=== PATIENT | male | born 1940 | race Caucasian/White ===

== ENCOUNTER → 2017-01-11 | Outpatient (CLI) | payer OTHER, MEDICARE ==
[~2017-01-11] MED LIST: ADVAIR HFA115 MCG/21 INH; ALLERGY10 M1 PO; ATORVASTATIN CA40 MG PO; ATORVASTATIN CA80 MG PO; FENOFIBRATE160 MG PO; FLOMAX PO; FLUOXETINE HCL40 MG PO; GLUCOPHAGE XR500 MG PO; IBUPROFEN 800800 MG PO; KEFLEX500 MG PO; LACTINEX CHEWA1 EACH PO; LEVAQUIN 500 M500 M2 PO; LISINOPRIL20 MG PO; METFORMIN HCL500 MG PO; NORCO 5-325 TA1 EACH PO; PERCOCET 5-3251 EACH PO; PERCOCET PO; POTASSIUM20 PO; PREDNISONE 10 M10 MG PO; PREDNISONE 20 M20 M1 PO; PROAIR HFA8.5 GM INH; PROZAC 20 MG20 M1 PO; SIMVASTATIN80 MG PO; TAMSULOSIN HCL0.4 M1 PO; TESSALON PERLE100 MG PO; VENTOLIN HFA INH8 GM INH; ZOFRAN ODT4 MG PO
== END ==
LOC: RAD 09:15
DX: J93.9 Pneumothorax, unspecified (principal)

== ENCOUNTER → 2017-03-17 | Outpatient (CLI) | payer OTHER, MEDICARE | LOC: RAD 08:50 | DX: J44.9 Chronic obstructive pulmonary disease, unspecified (principal) ==

== ENCOUNTER 2017-03-27 20:07 | Inpatient (IN) | payer OTHER, MEDICARE ==
[~2017-03-27] VITALS: Ht 177.8 cm; Wt 90.5 kg
--- NOTE | ~2017-03-27 | EKG ---
[address] [address] [place] [address] ELECTROCARDIOGRAM REPORT Name: TEODORA BRAVO Room #: 314-P ADM IN M.R.#: [id number] Admission: 03/27/17 Attend Phys: Fidel Myers DO Discharge: Date of : 40 Report #: [id number] THIS REPORT FOR: //name// [facility] ED Test Date: 2017-03-27 Test Time: 20:13:28 Pat Name: TEODORA BRAVO Department: Room: [facility] Gender: M Boarding House Manager: FREDDY : 1940 Requested By: Nydia Perry Order Number: [id number] MD: Harvey Hazel Measurements Intervals [place] Rate: 99 P: 69 RI: 132 QRS: -35 QRSD: 132 T: 50 QT: 334 QTc: 429 Interpretive Statements Sinus tachycardia Multiple premature complexes, vent & supraven Right bundle branch block Compared to ECG 11/07/2016 11:15:19 No significant change was found Electronically Signed On 03-29-2017 7:48:27 CDT by Harvey Hazel [email or web address] <ELECTRONICALLY SIGNED> By: Harvey Hazel MD, [facility] 03/29/17 0748 12 12 Harvey Hazel MD, [facility] /EPI
--- NOTE | ~2017-03-27 | HC ---
[facility] [place] [address] [place] [address] CONSULTATION Name: TEODORA BRAVO Room #: 314-P [facility] IN M.R.#: [id number] Admission: 03/27/17 Attend Phys: Fidel Myers DO Discharge: 03/29/17 Date of : 40 Report #: [id number] THIS REPORT FOR: //name// CC: Fidel Portillo HISTORY OF PRESENT ILLNESS: The patient is a 77-year-old white male with a prior history of small cell lung CA status post radiation chemotherapy approximately one year ago. Cancer was noted to be in remission. He has been living by himself at home. 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 The son is uncertain whether this is a second primary tumor or if it is metastatic. The son indicated that he had an MRI of the brain that showed the tumor in October, another one in January that showed the tumor was increasing or expanding in size and apparently has had another MRI that showed further expansion of the tumor, although no evidence of actual shift. He actually has a followup appointment with Dr. Byers in Neurosurgery at tomorrow. In the meantime, the patient has had problems with worsening falls. He had two falls yesterday with one initial fall and then another one when he tried to get up and was unable. He essentially laid on the floor for at least an hour and a half and was admitted, noted to have some rhabdomyolysis, dehydration. He has been rehydrated and is doing better, but still has decreased balance and functional mobility. We are seeing him in rehabilitation medicine consultation. PAST MEDICAL HISTORY: Is delineated above. He has a prior history of kidney stones, diabetes, kidney stones removal, COPD. MEDICATIONS: Please see the full medication listing. ALLERGIES: No known drug allergies. SOCIAL HISTORY: Lives alone in a house, one step, did not utilize gait aids. He would use a walker in the community. He is still driving. His son works, but is supportive. REVIEW OF SYSTEMS: Did not offer any current complaints of chest pain, shortness of breath or abdominal discomfort. No focal extremity pain complaints. No complaints of headache. No complaints of bowel or bladder changes were verbalized. PHYSICAL EXAMINATION: GENERAL: He is a 77-year-old white male in no obvious distress. He has frontal balding. VITAL SIGNS: His last recorded temperature is 96.7, pulse 94, respirations 22, blood pressure 104/62. NEUROLOGIC: Facies are symmetric. EXTREMITIES: He has functional range of motion of both upper and lower [address] [address] CONSULTATION Name: TEODORA BRAVO Room #: 314-P [facility] IN M.R.#: [id number] Admission: 03/27/17 Attend Phys: Fidel Myers DO Discharge: 03/29/17 Date of : 40 Report #: [id number] extremities. He may have some mild decreased strength of that right upper and right lower extremity, a grade 4 to 4-. DTRs were trace to 1. There is a hint of possible clonus of that right ankle. Left upper and left lower extremity were more of a grade 4+/5. DTRs were 1. Functionally, he is min assist with sit to stand. He is contact guard to ambulate 100 feet with a front-wheeled walker. ASSESSMENT: A 77-year-old white male with the following problem list: 1. Left frontal tumor noted to be expanding on imaging per discussion with son. 2. Gait instability with falls and decreased balance. 3. Rhabdomyolysis after a recent fall. 4. Dehydration. 5. Small cell lung CA status post previous radiation and chemo was noted to be in remission. 6. Diabetes mellitus. 7. Chronic obstructive pulmonary disease. 8. Past tobacco abuse. PLAN: He is better with rehydration, but is still having decreased balance and has had the falls, which have been noted. Would recommend that contact with Neurosurgery at be undertaken with potential transfer to for evaluation by Dr. Byers as the patient may warrant neurosurgical intervention. Once this has been undertaken, we certainly could be a consideration for post-intervention rehabilitation here at [facility]. In the meantime, I feel that we need to team together with the Neurosurgery Department at as far as further managing this patient. Discussion was held with case management and the patient's son. <ELECTRONICALLY SIGNED> By: Jed Morales MD 03/29/17 1826 1622 [id number] Jed Morales MD /nt
[2017-03-27 20:08] VITALS: BP 118/62; BP 189/170
[2017-03-27 20:36] LABS: HEMATOCRIT 43.9 % (42.0-52.0); HEMOGLOBIN 14.4 gm/dL (14.0-18.0); MCH 27.1 pg (26.0-34.0); MCHC 32.7 g/dL (28.0-37.0); PLATELET COUNT 105 thou/uL (150-400); RBC 5.29 mil/uL (4.50-6.00); RDW 21.3 % (10.5-14.5); WBC 10.8 thou/uL (4.0-11.0)
[2017-03-27 20:41] LABS: MANUAL DIFF YES
[2017-03-27 20:45] LABS: CALCIUM 9.1 mg/dL (8.5-10.1); POTASSIUM 4.4 mmol/L (3.5-5.1)
[2017-03-27 20:51] LABS: URINE BILIRUBIN NEGATIVE (Negative); URINE BLOOD 2+ (Negative); URINE COLOR YELLOW; URINE GLUCOSE-RANDOM* NEGATIVE (Negative); URINE KETONES NEGATIVE (Negative); URINE NITRITE NEGATIVE (Negative); URINE PROTEIN (DIPSTICK) 1+ (Negative); URINE UROBILINOGEN 0.2 E.U./dl (0.2-1.0)
[2017-03-27 20:57] LABS: SQUAMOUS None Seen /LPF (0-3)
[2017-03-27 20:58] LABS: BACTERIA 1-9 Few /HPF (None Seen); CASTS None Seen /LPF (None Seen); CRYSTALS None Seen /LPF (None Seen); URINE RBC 0-2 Rare /HPF (0-2); URINE WBC None Seen /HPF (0-5)
[2017-03-27 21:00] LABS: ABSOLUTE NEUTROPHILS 8.7 thou/uL (1.4-8.2); ANISOCYTOSIS 1+; TOTAL CELL COUNT 100
[2017-03-27 21:04] LABS: TROPONIN-I 0.07 ng/mL (<0.04-0.07)
[2017-03-27 22:00] VITALS: BP 92/56
[2017-03-28 03:01] LABS: HEMATOCRIT 39.1 % (42.0-52.0); HEMOGLOBIN 12.8 gm/dL (14.0-18.0); MCHC 32.9 g/dL (28.0-37.0); MCV 82.2 fL (80.0-100.0); RBC 4.75 mil/uL (4.50-6.00); RDW 21.4 % (10.5-14.5); WBC 7.7 thou/uL (4.0-11.0)
[2017-03-28 03:24] LABS: CALCIUM 8.3 mg/dL (8.5-10.1); POTASSIUM 4.1 mmol/L (3.5-5.1)
[2017-03-28 04:00] VITALS: BP 119/76
[2017-03-28 09:45] VITALS: BP 104/62
[2017-03-28 19:28] VITALS: BP 135/66
[2017-03-28 20:26] VITALS: BP 150/68
[2017-03-29 04:01] LABS: ABSOLUTE NEUTROPHILS 5.1 thou/uL (1.4-8.2); BASOPHILS 0.4 % (0.0-2.0); HEMATOCRIT 38.5 % (42.0-52.0); HEMOGLOBIN 12.6 gm/dL (14.0-18.0); LYMPHOCYTES 12.8 % (24.0-44.0); MCHC 32.8 g/dL (28.0-37.0); MCV 82.4 fL (80.0-100.0); MONOCYTES 10.5 % (1.0-8.0); PLATELET COUNT 73 thou/uL (150-400); POLYS 75.3 % (36.0-66.0); RBC 4.67 mil/uL (4.50-6.00); RDW 21.2 % (10.5-14.5); WBC 6.7 thou/uL (4.0-11.0)
[2017-03-29 04:05] LABS: MANUAL DIFF NO
[2017-03-29 04:10] LABS: CREATININE 0.9 mg/dL (0.7-1.3); POTASSIUM 3.9 mmol/L (3.5-5.1)
[2017-03-29 04:25] VITALS: BP 144/69
[2017-03-29 08:27] VITALS: BP 120/69
[2017-03-29] MEDS ORDERED: DEXAMETHASONE 44 M1 PO (14:43)
[2017-03-29] MEDS ORDERED: GLUCOPHAGE500 MG PO (14:44)
[2017-03-29 15:48] VITALS: BP 114/59
== END 2017-03-29 17:59 | DRG 566 ==
LOC: ER 20:07 → 3N 21:13 → EROBS 21:13 → 3N 22:15
PROVIDERS: Emergency Medicine; Family Medicine; Nurse Practitioner Family
DX: T79.6XXA Traumatic ischemia of muscle, initial encounter (principal); I95.1 Orthostatic hypotension; E86.0 Dehydration; J44.9 Chronic obstructive pulmonary disease, unspecified; E11.9 Type 2 diabetes mellitus without complications; Z60.2 Problems related to living alone; R26.9 Unspecified abnormalities of gait and mobility; E78.5 Hyperlipidemia, unspecified; W18.39XA Other fall on same level, initial encounter; I95.9 Hypotension, unspecified; Z79.899 Other long term (current) drug therapy; Z87.442 Personal history of urinary calculi; Z85.118 Personal history of other malignant neoplasm of bronchus and lung; Z92.3 Personal history of irradiation; Z87.891 Personal history of nicotine dependence; Z92.21 Personal history of antineoplastic chemotherapy
CPT/HCPCS: 10096

== ENCOUNTER 2017-03-29 14:48 | Inpatient (IN) | payer OTHER, MEDICARE ==
[~2017-03-29] VITALS: Ht 177.8 cm; Wt 91.2 kg
[~2017-03-29 14:48] MED LIST changes: +DEXAMETHASONE 44 M1 PO; +GLUCOPHAGE500 MG PO
[2017-03-29 18:05] VITALS: BP 132/70
[2017-03-30 05:31] VITALS: BP 98/51
[2017-03-30 15:30] VITALS: BP 110/61
[2017-03-30 15:31] VITALS: BP 114/65
[2017-03-30 15:32] VITALS: BP 109/61
[2017-03-31 04:05] LABS: CALCIUM 8.6 mg/dL (8.5-10.1); CREATININE 0.7 mg/dL (0.7-1.3); MAGNESIUM 1.8 mg/dL (1.8-2.4); POTASSIUM 4.1 mmol/L (3.5-5.1)
[2017-03-31 04:14] LABS: HEMATOCRIT 36.5 % (42.0-52.0); HEMOGLOBIN 12.1 gm/dL (14.0-18.0); MCHC 33.1 g/dL (28.0-37.0); MCV 81.6 fL (80.0-100.0); PLATELET COUNT 87 thou/uL (150-400); RBC 4.48 mil/uL (4.50-6.00); RDW 20.9 % (10.5-14.5); WBC 4.6 thou/uL (4.0-11.0)
[2017-03-31 04:24] LABS: MANUAL DIFF YES
[2017-03-31 05:33] LABS: ANISOCYTOSIS 2+; LARGE PLATELETS OCCASIONAL; TOTAL CELL COUNT 100
[2017-03-31 07:15] VITALS: BP 142/65
[2017-03-31 15:15] VITALS: BP 130/64
[2017-04-01 05:42] VITALS: BP 134/69
[2017-04-01 15:45] VITALS: BP 125/59
[2017-04-02 05:31] VITALS: BP 120/57
[2017-04-02 09:10] VITALS: BP 121/48
[2017-04-03 05:57] VITALS: BP 146/82
[2017-04-03 14:39] VITALS: BP 117/50
[2017-04-04 05:43] VITALS: BP 125/77
[2017-04-04] MEDS ORDERED: DEXAMETHASONE 22 M1 GT (09:39)
[2017-04-04 10:54] VITALS: BP 125/77
[2017-04-04 11:06] VITALS: BP 125/77
== END 2017-04-04 14:26 | disposition home health service (06) | DRG 55 ==
PROVIDERS: Nurse Practitioner
DX: D49.6 Neoplasm of unspecified behavior of brain (principal); C34.90 Malignant neoplasm of unspecified part of unspecified bronchus or lung; E11.9 Type 2 diabetes mellitus without complications; K59.00 Constipation, unspecified; I95.9 Hypotension, unspecified; J44.9 Chronic obstructive pulmonary disease, unspecified; R26.81 Unsteadiness on feet; T79.6XXA Traumatic ischemia of muscle, initial encounter; W18.39XA Other fall on same level, initial encounter; Y93.89 Activity, other specified; Y92.89 Other specified places as the place of occurrence of the external cause; Z87.891 Personal history of nicotine dependence; Y99.8 Other external cause status; Z79.899 Other long term (current) drug therapy; Z87.442 Personal history of urinary calculi; Z87.440 Personal history of urinary (tract) infections
CPT/HCPCS: 10112